=== PATIENT | male | born 1945 | race Caucasian/White ===

== ENCOUNTER 2025-02-16 00:01 | Emergency (ER) | payer MEDICARE, OTHER ==
[2025-02-16 00:21] LABS: #Basophils 0.09 10x3/uL (0.0-0.2); #Eosinophils 0.91 10x3/uL (0.0-0.5); #Monocytes 0.90 10x3/uL (0.0-1.1); #Neutrophils 3.55 10x3/uL (1.5-8.4); %Basophils 1.1 % (0.0-2.0); %Eosinophils 11.1 % (0.0-6.0); %Lymphocytes 32.8 % (18.0-47.0); %Monocytes 11.0 % (0.0-10.0); %Neutrophils 43.5 % (40.0-75.0); Hematocrit 42.2 % (38.8-50.0); Hemoglobin 14.6 g/dL (13.5-17.5); Mean Corpuscular Hemoglobin 32.8 pg (27.0-33.0); Mean Corpuscular Volume 94.8 fL (81.2-95.1); Platelet Count 185 10x3/uL (150-450); Red Blood Cell (RBC) Count 4.45 10x6/uL (4.32-5.72); White Blood Cell (WBC) Count 8.17 10x3/uL (3.5-10.5)
[2025-02-16 00:39] LABS: ALT (SGPT) 28 U/L (Less than 45); AST (SGOT) 29 U/L (11-34); Albumin 4.0 g/dL (3.1-4.5); Alkaline Phosphatase 62 U/L (40-110); Anion Gap 15 mmol/L (10-20); BUN (Urea Nitrogen) 23 mg/dL (8.4-25.7); Bilirubin, Total 0.5 mg/dL (0.3-1.2); Calc. Creatinine Clearance 0 mL/min (70-130); Calcium 9.4 mg/dL (7.8-10.44); Carbon Dioxide 22 mmol/L (23-31); Chloride 104 mmol/L (98-107); Globulin 3.0 g/dL (2.4-3.5); Glucose 100 mg/dL (83-110); Potassium 4.5 mmol/L (3.5-5.1); Sodium 136 mmol/L (136-145)
[2025-02-16 01:07] LABS: Troponin I 0.018 ng/mL (< 0.028)
[2025-02-16 02:19] LABS: Troponin I 0.019 ng/mL (< 0.028)
== END 2025-02-16 02:51 | disposition home or self-care (01) ==
LOC: CSHERS 00:01
DX: R10.13 Epigastric pain (principal); R07.89 Other chest pain; I10 Essential (primary) hypertension; E78.00 Pure hypercholesterolemia, unspecified; Z79.899 Other long term (current) drug therapy
CPT/HCPCS: 71045; 76705; 80053; 84484; 85025; 93005